=== PATIENT | female | born 1985 | race Caucasian/White ===

== ENCOUNTER 2020-09-26 16:36 | Emergency (ER) | payer OTHER ==
[~2020-09-26] VITALS: Ht 177.8 cm; Wt 90.7 kg
[2020-09-26 16:37] VITALS: BP 119/47
--- NOTE | 2020-09-26 16:40 | NUR ---
PATIENT AMBULATED TO BED 6
--- NOTE | 2020-09-26 16:40 | NUR ---
34 YEAR OLD FEMALE COMPLAINS OF RIGHT TOE PAIN X YESTERDAY. PT STATES SHE SMASHED TOE INTO OBJECT AT HOME. TOE WITH LIMITED ROM AND BRUISING. PT AOX4, BREATHING EVEN AND UNLABORED, SKIN WARM AND DRY. BED IN LOWEST POSITION, LOCKED, BED RAIL UPX1. PMH - DENIES ALLERGIES - NKA
--- NOTE | 2020-09-26 16:52 | NUR ---
XRAY AT BEDSIDE
[2020-09-26] MEDS ORDERED: ACET-8386 PO (17:11)
[2020-09-26 17:36] VITALS: BP 119/47
--- NOTE | 2020-09-26 17:36 | NUR ---
Patient discharged with v/s stable. Written and verbal after care instructions given and explained. Patient alert, oriented and verbalized understanding of instructions. Ambulatory with steady gait. All questions addressed prior to discharge. ID band removed. Patient advised to follow up with PMD. Rx of Hydrocodone/Acetaminophen given. Patient educated on indication of medication including possible reaction and side effects. Opportunity to ask questions provided and answered.
== END 2020-09-26 17:36 | disposition home or self-care (01) ==
LOC: MED 16:36
DX: S92.512A Displaced fracture of proximal phalanx of left lesser toe(s), initial encounter for closed fracture (principal); Z79.899 Other long term (current) drug therapy; Z91.018 Allergy to other foods; W22.8XXA Striking against or struck by other objects, initial encounter; Y93.89 Activity, other specified; Y92.89 Other specified places as the place of occurrence of the external cause; Y99.8 Other external cause status
CPT/HCPCS: 73660; 99283

== ENCOUNTER 2021-03-14 17:37 | Emergency (ER) | payer OTHER ==
[~2021-03-14] VITALS: Ht 177.8 cm; Wt 98.7 kg
[~2021-03-14 17:37] MED LIST: ACET-8386 PO
[2021-03-14 18:22] VITALS: BP 131/72
[2021-03-14] MEDS ORDERED: NAPR-54 PO (19:29)
--- NOTE | 2021-03-14 20:02 | NUR ---
NO NURSING INTERVENTIONS DONE, NO COMPLETE ASSESSMENTS NECESSARY.
[2021-03-14 20:06] VITALS: BP 128/79
--- NOTE | 2021-03-14 20:07 | NUR ---
Patient discharged with v/s stable. Written and verbal after care instructions given FOOT SPRAIN AND FOOT CONTUSION and explained. Patient alert, oriented and verbalized understanding of instructions. Ambulatory with steady gait. All questions addressed prior to discharge. ID band removed. Patient advised to follow up with PMD. Rx of NAPROXEN given. Patient educated on indication of medication including possible reaction and side effects. Opportunity to ask questions provided and answered.
--- NOTE | 2021-03-14 20:07 | NUR ---
Ashwini boo in EDM - 03/14/21 at 2007 by [facility] 32 Y/O FEMALE C/O SORE THROAT WITH FEVER/CHILLS AND THROAT PAIN 08/27. DEIES N/V. AEVE WITH NO RELIEF. PMH: STREP THROAT, TONSILITIS NKA
== END 2021-03-14 20:07 | disposition home or self-care (01) ==
LOC: MED 17:37
DX: S93.602A Unspecified sprain of left foot, initial encounter (principal); Z88.8 Allergy status to other drugs, medicaments and biological substances; Z79.899 Other long term (current) drug therapy; W18.09XA Striking against other object with subsequent fall, initial encounter; Y93.01 Activity, walking, marching and hiking; Y92.89 Other specified places as the place of occurrence of the external cause; Y99.8 Other external cause status
CPT/HCPCS: 73630; 99283